=== PATIENT | male | born 1965 | race Caucasian/White ===

== ENCOUNTER → 2017-10-07 | Outpatient (CLI) | payer BC ==
[~2017-10-07] MED LIST: AMLO5TAB2 PO; ATOR20TA58 PO; IBUP-1060 PO; LISI1TAB5 PO
--- NOTE | 2017-10-07 16:25 | KCIC ---
LUMBAR SPINE MIN 4V Indication: Left back pain radiating down the left leg for 2 or 3 months. . Comparison: No comparison is available. FINDINGS: Mild right convexity scoliosis. Vertebral body height is maintained. No evidence of destructive bone lesion. No significant vertebral subluxation. There is mild marginal spurring at the lumbar spine particularly at L3-4 and L4-5. There is also mild lower thoracic degenerative spurring. No evidence of spondylolysis. IMPRESSION: Mild degenerative changes. Electronically signed by: Robert Simpson MD (10/07/2017 4:22 PM) [facility]
== END | disposition home or self-care (01) ==
LOC: KCIC 15:18
PROVIDERS: ATTEND Physician Assistant Medical
DX: M54.9 Dorsalgia, unspecified (principal)
CPT/HCPCS: 72110

== ENCOUNTER → 2017-10-09 | Outpatient (CLI) | payer BC ==
--- NOTE | 2017-10-09 15:57 | KCIC ---
MRI Lumbar Spine without contrast History: Acute left-sided low back pain, left sciatica Technique: Multiplanar, multi sequential noncontrast MR imaging was performed of the lumbar spine. Contrast: None Comparison: None Findings: Lumbar vertebral body stature is preserved. There is negligible posterior subluxation L4 relative L5. There is moderate to severe degenerative disc disease greater posteriorly at L4-5, mild degenerative disc disease greater posteriorly at L3-4. There is a small hemangioma of the L1 vertebral body. Conus terminates at T12. There is mild degenerative endplate change and endplate edema L4-5. L1-L2: Spinal canal and the neural foramina are adequate. There is mild facet hypertrophic change. L2-L3: There is anterior annular tear. There is prominence of posterior epidural fat and mild buckling of the ligamentum flavum. There is mild to moderate facet hypertrophic change. There is negligible disc osteophyte complex. There is very mild narrowing of the far left lateral recess. Neural foramina are adequate. L3-L4: There is shallow posterior bulge. There is mild buckling of the ligamentum flavum and [id number] facet degenerative change. There is very mild narrowing of the far lateral recesses bilaterally. There is mild narrowing of the left neural foramen, right neural foramen adequate. L4-L5: There is mild facet hypertrophic change greater on right. There is minimal buckling of the ligamentum flavum. There is shallow broad posterior bulge/protrusion. There is very mild narrowing of the far left lateral recess. There is mild neural foramina compromise bilaterally. L5-S1: Spinal canal and neural foramina are adequate. Impression: 1. There is no significant lumbar spinal stenosis, mild narrowing of the far lateral recesses as stated. 2. There is moderate to severe degenerative disc disease at L4-5, minimally at L3-4. 3. There is mild neural foramina compromise bilaterally at L4-5 and on the left at L3-4. Electronically signed by: Stephen Meredith MD (10/09/2017 3:53 PM) [facility]
== END | disposition home or self-care (01) ==
LOC: KCIC MRI 15:06
PROVIDERS: ATTEND Physician Assistant Medical
DX: M54.42 Lumbago with sciatica, left side (principal); M51.36 Other intervertebral disc degeneration, lumbar region
CPT/HCPCS: 72148

== ENCOUNTER → 2017-10-22 | Outpatient (CLI) | payer BC ==
[~2017-10-22] MED LIST changes: +IOHEXOL 180 MG/ML 10 ML VIAL. ONE; +methylPREDNISolone ACETATE 40 MG/ML VIAL. ONE; +methylPREDNISolone ACETATE 80 MG/ML VIAL. ONE
--- NOTE | 2017-10-23 04:27 | PAIN ---
DATE OF SERVICE: 10/22/2017 INITIAL CONSULTATION FOR PAIN CLINIC CHIEF COMPLAINT: Low back and left lower extremity pain. HISTORY OF PRESENT ILLNESS: The patient is a 51-year-old male who presents with history of pain for about 3 to 4 months, increasing gradually in the low back, left lower extremity, radiating to the posterior gluteus, posterolateral thigh, lateral anterior thigh, medial thigh, medial lower leg and into the foot on the medial aspect on the left side only. No pain on the right side. The patient reports it is constant, sharp, throbbing, shooting with numbness and tingling, changes during the day, worse with activity, standing, walking, changing positions, better with sitting or lying down, but does not awaken him from sleep. He lies on his left side about every 2-3 hours at night. The patient reports it has not affected his bowel or bladder control, but does affect his ability to walk significantly. He has been having weakness in his left leg and significant fatigability with walking even more than about 10 or 15 minutes. The patient reports also riding in the car, his leg feels numb and heavy on the left side. The patient reports his disability rating from 0-10, 10 being the worst is a 2 with family home responsibilities and self care, 4 with recreation, occupation, sexual behavior and life support activities. The patient did have an MRI scan of the lumbar spine showing moderate to severe degenerative disk disease at L4-L5 and minimally at L3-L4 with broad-based shallow posterior bulge protrusion at L4-L5 with mild narrowing of the far left lateral recess. Also L3-L4 showing mild narrowing, left neural foramen and right neural foramen is adequate. The patient has tried exercising, doing some stretching on his own, has had no formal physical therapy at this time and no formal other treatments. PAST MEDICAL HISTORY: Significant for hypertension, otherwise the patient has been in very good health. PREVIOUS SURGERY: Include hernia repair. CURRENT MEDICATIONS: Include ibuprofen, amlodipine, lisinopril and atorvastatin. ALLERGIES: THE PATIENT IS ALLERGIC TO PENICILLIN. FAMILY HISTORY: Significant for no major medical problems or conditions that he is aware of. SOCIAL HISTORY: The patient is and lives locally in [place], [place]. 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 Drinks 1 to 2 alcoholic drinks a week on average and does not smoke. REVIEW OF SYSTEMS: The patient's review of systems is positive for those items mentioned in the history of present illness. All systems reviewed and otherwise negative. It is complete, full and well documented on the patient's chart. PHYSICAL EXAMINATION: VITAL SIGNS: Today, his blood pressure 140/86, pulse 75, respirations 18, temperature 98.1 degrees Fahrenheit, height 6 feet and weight is 240 pounds. GENERAL: The patient is awake, alert, oriented, appropriate, very pleasant demeanor. HEENT: Head shows normocephalic and atraumatic. Extraocular movements are intact and symmetrical. Oral cavity: Mucous membranes are moist and pink. Dentition is intact. NECK: Shows anterior throat supple without palpable lymphadenopathy noted. Swallow reflex is symmetrical. CHEST: Normal to inspection. Breath sounds are clear to auscultation bilaterally. HEART: Shows S1 and S2 clear. No murmurs auscultated. ABDOMEN: Soft, nontender and nondistended. No palpable organomegaly. No rebound or guarding demonstrated. MUSCULOSKELETAL: Back shows spine grossly in the midline. Normal appearing thoracic kyphosis and lumbar lordotic curvature. No previous bruises, lesions, rashes or scars are noted. Lumbar paraspinous muscle shows symmetrical on inspection with palpation, some [id number] tenderness in the low back, more on the left than the right in the paraspinous muscles in the low lumbar distribution only diffusely without radiation. No tenderness over the sacrum, spinous processes or the sacroiliac regions. The patient has good rotational motion of the lumbar spine both laterally greater than 10 degrees, right and left as well as extension greater than 10 degrees, forward flexion 45 degrees without significant pain reported. The patient's lower extremities show deep tendon reflexes at 2+ in the patellar and 1+ tendo calcaneus tendons. Motor exam is strong with 5/5 dorsiflexion, extension, quadriceps and hamstring flexion and symmetrical. Peripheral pulses are 2+ posterior tibial and dorsalis pedis pulses. No peripheral edema is noted. No clubbing or cyanosis. Lower extremities are warm and dry to touch, equal in color and appearance. The patient's straight leg raise noted to be moderately positive on the left at about 35 to 40 degrees, decreased with knee flexion, right side is negative. Gaenslen's and Jeff's maneuvers are negative bilaterally as well. The patient is able to stand, stand on his toes without difficulty without loss of balance, walks with a normal appearing gait for a short distance in the office today, not using any assistive device such as canes or walkers. IMPRESSION: 1. This is a 51-year-old male with approximate 3-4 month history of increasing pain, low back, left lower extremity without any specific injury or action he is aware of. 2. MRI scan of the lumbar spine as noted. 3. Hypertension. PLAN: Options were discussed with the patient including conservative medical management, physical therapy, interventional technique and he would like to pursue with interventional techniques. We discussed a lumbar epidural steroid injection using description as well as anatomical models to describe the procedure. Risks were then discussed including, but not limited to bleeding, infection, possibility of epidural hematoma and subsequent neurological compromise, dural puncture, headaches, spinal cord and/or nerve damage, side effects of steroid medication and poor results regarding pain control. The patient understands and wished to proceed. The patient will return to the clinic in approximately 2 weeks for followup. He was counseled on return appointment, activity level and side effects to be aware of. DIAGNOSIS: Lumbar degenerative disk disease with lumbar radiculopathy. PROCEDURES: Lumbar epidural steroid injection, translaminar approach at the L4-L5 level using C-arm fluoroscopic guidance under sterile prep and drape using local anesthetic. MEDICATIONS INJECTED: A total of 120 mg of Depo-Medrol plus 10 mL of preservative -free normal saline and 2 mL of Isovue contrast. CONDITION AT DISCHARGE: Stable. The patient tolerated the procedure well and had no complications. ANA LUISA SAMPSON MD DR: WILVER/denton JOB#: [id number] / [id number]
== END ==
LOC: PNCL 12:39
PROVIDERS: ATTEND Anesthesiology
DX: M51.16 Intervertebral disc disorders with radiculopathy, lumbar region (principal); I10 Essential (primary) hypertension; Z88.0 Allergy status to penicillin; Z98.890 Other specified postprocedural states
CPT/HCPCS: 62323; J1030; J1040

== ENCOUNTER → 2017-11-05 | Outpatient (CLI) | payer BC ==
--- NOTE | 2017-11-06 00:05 | PAIN ---
DATE OF SERVICE: 11/05/2017 [employer] PROGRESS NOTE FOR PAIN CLINIC DIAGNOSES: Lumbar radiculopathy with lumbar degenerative disk disease. HISTORY OF PRESENT ILLNESS: The patient is a 51-year-old male who returns for followup status post lumbar epidural steroid injection x 1. The patient reports about 70% improvement in the low back and left lower extremity pain. The patient reports still has some pain in the region, is a throbbing pain in his low back radiating pain to posterior gluteus, posterolateral thigh, lateral anterior thigh to the level of the knee; is aching and dull, becoming more constant when noticeable and initially was doing very well, was having a significant increase in activity with greater ease and comfort, sleeping better. It is beginning to awaken him occasionally in the last few days overnight but appears still sleeps about 6 hours a night without disruption. The patient reports he usually reposition to get back to sleep as well when he is mainly lying on his left side. The patient reports the pain is a 6 on a scale 10 at its worst, 2 on average and 4 currently today. The patient reports aching and dull, becoming more noticeable, more constant. No new motor or sensory deficits, however, no new bowel or bladder incontinence or other complaints. PHYSICAL EXAMINATION: VITAL SIGNS: Today, the patient's blood pressure is 151/95, pulse 77, respirations are 18, temperature is 98.4 degrees Fahrenheit, height 6 feet and weight is 236 pounds. GENERAL: The patient is awake, alert, oriented, appropriate and very pleasant demeanor. HEENT: Head shows normocephalic and atraumatic. Extraocular movements are intact, symmetrical. Oral cavity: Mucous membranes moist and pink. Dentition is intact. NECK: Shows anterior throat supple without palpable lymphadenopathy noted. Swallow reflex symmetrical. Neck shows full rotational motion of the cervical spine without difficulty or tenderness. CHEST: Shows normal with inspection. Breath sounds clear to auscultation bilaterally. HEART: Shows S1 and S2 clear. ABDOMEN: Soft, nontender and nondistended. No palpable organomegaly. No rebound or guarding demonstrated. BACK: Shows spine grossly in the midline. Normal appearing thoracic kyphosis and lumbar lordotic curvature. Lumbar paraspinous muscle shows symmetrical on inspection with palpation shows only some very mild tenderness with palpation in the lower lumbar distribution bilaterally but without radiation. No tenderness over the sacrum and sacroiliac regions. The patient has good rotational motion of the lumbar spine, both laterally as well as extension and flexion without difficulty. The lower extremities show deep tendon reflexes at 2+ in the patellar and 1+ tendo calcaneus tendons. Motor exam is strong with 5/5 dorsiflexion, extension, quadriceps and hamstring flexion equal. Peripheral pulses are 2+, posterior tibial. No peripheral edema is noted bilaterally. Options were discussed with the patient. The patient's old chart was used as well as current medication regimen updated. Current review of systems updated today as well. We will proceed with a second lumbar epidural steroid injection with fluoroscopic guidance today. Risks were again discussed including, but not limited to bleeding, infection, possibility of epidural hematoma, subsequent neurologic compromise, dural puncture, headaches, spinal cord and/or nerve damage, side effects of steroid medication and poor results regarding pain control. The patient understands and wished to proceed. The patient to return to clinic in approximately 2 weeks for followup. He was counseled as to activity level as well as the side effects to be aware of. DIAGNOSIS: Lumbar radiculopathy with lumbar degenerative disease. PROCEDURE: Lumbar epidural steroid injection, translaminar approach at the L4-L5 level using C-arm fluoroscopic guidance under sterile prep and drape using local anesthetic. MEDICATION INJECTED: A total of 120 mg Depo-Medrol plus 10 mL of preservative-free normal saline and 2 mL of Isovue for contrast. CONDITION AT DISCHARGE: Stable. The patient tolerated procedure well, had no complications. ANA LUISA SAMPOSN MD DR: WILVER/denton JOB#: [id number] / [id number]
== END | disposition home or self-care (01) ==
LOC: PNCL 14:22
PROVIDERS: ATTEND Anesthesiology
DX: M51.16 Intervertebral disc disorders with radiculopathy, lumbar region (principal); Z88.0 Allergy status to penicillin
CPT/HCPCS: 62323; J1030; J1040

== ENCOUNTER 2018-10-16 17:58 | Inpatient (IN) | payer BC ==
[~2018-10-16] VITALS: Ht 182.9 cm; Wt 115.2 kg
[~2018-10-16 17:58] MED LIST changes: -AMLO5TAB2 PO; +AMLO5TAB7 PO; -IOHEXOL 180 MG/ML 10 ML VIAL. ONE; -methylPREDNISolone ACETATE 40 MG/ML VIAL. ONE; -methylPREDNISolone ACETATE 80 MG/ML VIAL. ONE
[2018-10-16] MEDS ORDERED: methylPREDNISolone SOD SUCC PF 125 MG/2 ML VIAL. ONE (18:00)
[2018-10-16] MEDS ORDERED: FAMOTIDINE 20 MG/2 ML VIAL ONE (18:00)
[2018-10-16 18:24] LABS: CALCIUM 8.7 mg/dL (8.5-10.1); CREATININE 1.3 mg/dL (0.7-1.3); GFR 58.4; POTASSIUM 3.6 mmol/L (3.5-5.1)
[2018-10-16 18:29] LABS: ALBUMIN 4.1 g/dL (3.4-5.0); ALBUMIN/GLOBULIN RATIO 1.3 (1.0-1.7); BASO # 0.1 x10^3/uL (0.0-0.2); BASO % 1 % (0-3); EOS # 0.1 x10^3/uL (0.0-0.7); EOS % 2 % (0-3); HEMATOCRIT 45.9 % (39.0-53.0); HEMOGLOBIN 16.2 g/dL (13.0-17.5); LYMPH % 27 % (24-48); MEAN CORPUSCULAR HEMOGLOBIN 31 pg (25-35); MEAN CORPUSCULAR HGB CONC 35 g/dL (31-37); MEAN CORPUSCULAR VOLUME 88 fL (79-100); MONO # 0.7 x10^3/uL (0.0-1.1); MONO % 9 % (0-9); NEUT # 4.7 x10^3uL (1.8-7.7); NEUT % 62 % (31-73); PLATELET COUNT 181 x10^3/uL (140-400); RED BLOOD COUNT 5.21 x10^6/uL (4.30-5.70); RED CELL DISTRIBUTION WIDTH 13.3 % (11.5-14.5); TOTAL BILIRUBIN 0.4 mg/dL (0.2-1.0); TOTAL PROTEIN 7.3 g/dL (6.4-8.2); WHITE BLOOD COUNT 7.6 x10^3/uL (4.0-11.0)
[2018-10-16] MEDS ORDERED: methylPREDNISolone SOD SUCC PF 125 MG/2 ML VIAL. IV ONE (18:30)
[2018-10-16] MEDS ORDERED: EPINEPHrine 1 MG/ML VIAL IM ONE (18:30)
[2018-10-16] MEDS ORDERED: FAMOTIDINE 20 MG/2 ML VIAL IVP ONE (18:30)
[2018-10-16] MEDS ORDERED: EPINEPHrine 1 MG/ML VIAL IM PRN (19:30)
[2018-10-16] MEDS ORDERED: ONDANSETRON PF 4 MG/2 ML VIAL. IV PRN (19:30)
--- NOTE | 2018-10-16 19:31 | PHYS DOC ---
Past Medical History Past Medical History: No Pertinent History Past Surgical History: No Surgical History Alcohol Use: Heavy Additional Information: WINE DAILY Drug Use: None Adult General Chief Complaint Chief Complaint: ALLERGIC REACTION HPI HPI Patient is a 52 year old male who presents with anaphylaxis. The patient was at home having dinner when he started to feel like his throat was swelling. By the time the patient came to the emergency department, approximately 30 minutes after symptoms began, the patient had significant swelling to throat as well as edema to bilateral eyelids. The patient does take lisinopril but has only a penicillin allergy from childhood. He states that he had a rash with that allergy. He denies any known food allergies. They were eating leftovers from yesterday's Thanksgiving dinner. The only difference in the meal was that this evening he did consume deviled eggs. His states that they did have paprika sprinkled on them. He denies chest pain or shortness of air. He denies fever or any recent illness. Review of Systems Review of Systems Constitutional: Denies fever or chills [] Eyes: Denies change in visual acuity, redness, or eye pain [] HENT: See history of present illness Respiratory: Denies cough or shortness of breath [] Cardiovascular: No additional information not addressed in HPI [] GI: Denies abdominal pain, nausea, vomiting, bloody stools or diarrhea [] : Denies dysuria or hematuria [] Musculoskeletal: Denies back pain or joint pain [] Integument: Denies rash or skin lesions [] Neurologic: Denies headache, focal weakness or sensory changes [] Endocrine: Denies polyuria or polydipsia [] All other systems were reviewed and found to be within normal limits, except as documented in this note. Current Medications Current Medications Current Medications Medications (Trade) Dose Ordered Sig/Favian Start Time Stop Time Status Last Admin Dose Admin Epinephrine HCl (Adrenalin) 0.5 mg 1X PRN PRN 10/16/18 19:30 10/17/18 13:17 DC Famotidine (Pepcid Vial) 20 mg 1X ONCE 10/16/18 18:30 10/16/18 18:31 DC 10/16/18 18:12 20 MG Methylprednisolone Sodium Succinate (SOLU-Medrol 125MG VIAL) 125 mg 1X ONCE 10/16/18 18:30 10/16/18 18:31 DC 10/16/18 18:12 125 MG Ondansetron HCl (Zofran) 4 mg PRN Q8HRS PRN 10/16/18 19:30 10/17/18 13:17 DC Sodium Chloride 1,000 ml @ 125 mls/hr Q8H 10/16/18 20:00 10/17/18 13:17 DC 10/16/18 20:47 125 MLS/HR Allergies Allergies Allergies Coded Allergies Type Severity Reaction Last Updated Verified Penicillins Allergy Intermediate Unknown 10/22/17 Yes Physical Exam Physical Exam Constitutional: Well developed, well nourished, no acute distress, non-toxic appearance. [] HENT: Normocephalic, atraumatic, bilateral external ears normal, oropharynx moist with edema noted to uvula and tongue, no oral exudates, nose normal. [] Eyes: PERRLA, EOMI, conjunctiva normal, no discharge, edema noted to bilateral eyelids. [] Neck: Normal range of motion, no tenderness, supple, no stridor. [] Cardiovascular:Heart rate regular rhythm, no murmur [] Lungs & Thorax: Bilateral breath sounds clear to auscultation [] Abdomen: Bowel sounds normal, soft, no tenderness, no masses, no pulsatile masses. [] Skin: Warm, dry, no erythema, no rash. [] Neurologic: Alert and oriented X 3, normal motor function, normal sensory function, no focal deficits noted. [] Psychologic: Affect normal, judgement normal, mood normal. [] Current Patient Data Vital Signs Vital Signs Date Time Temp Pulse Resp B/P (MAP) Pulse Ox O2 Delivery O2 Flow Rate FiO2 10/16/18 18:14 98.6 97 16 147/112 (124) 98 Room Air 98.6 Lab Values Laboratory Tests Test 10/16/18 18:00 White Blood Count 7.6 x10^3/uL (4.0-11.0) Red Blood Count 5.21 x10^6/uL (4.30-5.70) Hemoglobin 16.2 g/dL (13.0-17.5) Hematocrit 45.9 % (39.0-53.0) Mean Corpuscular Volume 88 fL (79-100) Mean Corpuscular Hemoglobin 31 pg (25-35) Mean Corpuscular Hemoglobin Concent 35 g/dL (31-37) Red Cell Distribution Width 13.3 % (11.5-14.5) Platelet Count 181 x10^3/uL (140-400) Neutrophils (%) (Auto) 62 % (31-73) Lymphocytes (%) (Auto) 27 % (24-48) Monocytes (%) (Auto) 9 % (0-9) Eosinophils (%) (Auto) 2 % (0-3) Basophils (%) (Auto) 1 % (0-3) Neutrophils # (Auto) 4.7 x10^3uL (1.8-7.7) Lymphocytes # (Auto) 2.0 x10^3/uL (1.0-4.8) Monocytes # (Auto) 0.7 x10^3/uL (0.0-1.1) Eosinophils # (Auto) 0.1 x10^3/uL (0.0-0.7) Basophils # (Auto) 0.1 x10^3/uL (0.0-0.2) Sodium Level 140 mmol/L (136-145) Potassium Level 3.6 mmol/L (3.5-5.1) Chloride Level 101 mmol/L (98-107) Carbon Dioxide Level 30 mmol/L (21-32) Anion Gap 9 (6-14) Blood Urea Nitrogen 16 mg/dL (8-26) Creatinine 1.3 mg/dL (0.7-1.3) Estimated GFR (Cockcroft-Gault) 58.4 BUN/Creatinine Ratio 12 (6-20) Glucose Level 155 mg/dL (70-99) H Calcium Level 8.7 mg/dL (8.5-10.1) Total Bilirubin 0.4 mg/dL (0.2-1.0) Aspartate Amino Transferase (AST) 22 U/L (15-37) Alanine Aminotransferase (ALT) 32 U/L (16-63) Alkaline Phosphatase 91 U/L (46-116) Total Protein 7.3 g/dL (6.4-8.2) Albumin 4.1 g/dL (3.4-5.0) Albumin/Globulin Ratio 1.3 (1.0-1.7) Laboratory Tests 10/16/18 18:00 Laboratory Tests 10/16/18 18:00 EKG EKG [] Radiology/Procedures Radiology/Procedures [] Course & Med Decision Making Course & Med Decision Making Pertinent Labs and Imaging studies reviewed. (See chart for details) []The patient took a dose of Benadryl at home. He received Solu-Medrol 125 mg, Pepcid and epinephrine 0.5 mg IM in the emergency department with resolution of his symptoms. He patient will be admitted for observation. Dr. Espinoza has accepted care of this patient. Dragon Disclaimer Dragon Disclaimer This electronic medical record was generated, in whole or in part, using a voice recognition dictation system. Departure Departure Impression: Primary Impression: Anaphylaxis Disposition: ADMITTED INPATIENT Condition: GOOD Attending Signature Attending Signature Constitutional: Well developed, well nourished, anxious HENT: Moderate uvular edema, moderate, tongue swelling Eyes: Conjunctiva normal, bilateral periocular edema noted Neck: Normal range of motion, no swelling, no stridor Cardiovascular:Heart rate regular rhythm, no murmur [] Lungs & Thorax: Bilateral breath sounds clear to auscultation, no respiratory distress Skin: Warm, dry, no erythema, facial and oral angioedema Neurologic: Alert and oriented X 3, no focal deficits noted. [] Psychologic: Anxious I have personally interviewed and examined the patient. All charts, labs, and imaging studies were reviewed. I agree with the PA/CRANE ENGINEER's findings, exam, and plan. LJ RAE APRN Oct 16, 2018 19:31 MICHELESHAQUILLE DO Oct 18, 2018 19:03
[2018-10-16] MEDS: IV NORMAL SALINE 1000ML BAG 1,000 ML IV SCH (20:47)
[2018-10-16 20:54] VITALS: BP 120/76
[2018-10-16 23:00] VITALS: BP 162/89
[2018-10-17 03:00] VITALS: BP 169/93
[2018-10-17 03:47] LABS: BASO % 0 % (0-3); EOS % 0 % (0-3); HEMATOCRIT 43.2 % (39.0-53.0); HEMOGLOBIN 15.6 g/dL (13.0-17.5); LYMPH # 0.6 x10^3/uL (1.0-4.8); LYMPH % 7 % (24-48); MEAN CORPUSCULAR HEMOGLOBIN 32 pg (25-35); MEAN CORPUSCULAR HGB CONC 36 g/dL (31-37); MEAN CORPUSCULAR VOLUME 87 fL (79-100); MONO # 0.1 x10^3/uL (0.0-1.1); MONO % 1 % (0-9); NEUT # 7.9 x10^3uL (1.8-7.7); NEUT % 92 % (31-73); PLATELET COUNT 158 x10^3/uL (140-400); RED BLOOD COUNT 4.95 x10^6/uL (4.30-5.70); RED CELL DISTRIBUTION WIDTH 13.1 % (11.5-14.5); WHITE BLOOD COUNT 8.6 x10^3/uL (4.0-11.0)
[2018-10-17] MEDS: IV NORMAL SALINE 1000ML BAG 1,000 ML IV SCH ×2 (04:00→12:00)
[2018-10-17 04:23] LABS: CREATININE 1.1 mg/dL (0.7-1.3); GFR 70.9; POTASSIUM 4.1 mmol/L (3.5-5.1)
[2018-10-17 07:12] VITALS: BP 159/111
[2018-10-17 09:49] LABS: % BANDS 4 % (0-9); % LYMPHS 4 % (24-48); % SEGS 92 % (35-66); PLT ESTIMATE ADEQUATE (ADEQUATE)
[2018-10-17 10:49] VITALS: BP 159/91
--- NOTE | 2018-10-17 12:27 | PDOC ---
Provider Note Provider Note [id number] ELDA WAY MD Oct 17, 2018 12:27
[2018-10-17] MEDS ORDERED: LOSARTAN POTASSIUM 50 MG TABLET. PO SCH (12:30)
[2018-10-17] MEDS ORDERED: amLODIPine BESYLATE 5 MG TABLET PO SCH (12:30)
[2018-10-17] MEDS ORDERED: ATORVASTATIN CALCIUM 20 MG TABLET PO SCH (12:30)
[2018-10-17] MEDS ORDERED: hydroCHLOROthiazide 25 MG TABLET PO SCH (12:30)
--- NOTE | 2018-10-17 12:30 | DISCH ---
DISCHARGE INSTRUCTIONS Condition on Discharge Condition on Discharge: Stable Activity After Discharge Activity Instructions for Disc: No restrictions Weight Bearing Status after Di: No restrictions Diet after Discharge Diet after Discharge: Cardiac, Low Sodium 4 gm Follow-Up Follow up with: dr domingo 5 d Follow Up With: Follow up with primary doctor in one week Treatment/Equipment after DC Adaptive Equipment Issued: None ELDA WAY MD Oct 17, 2018 12:30
[2018-10-17 12:44] VITALS: BP 159/91
--- NOTE | 2018-10-17 12:48 | SSS ---
ADMIT DATE: 10/17/2018 HOSPITAL SUMMARY: A 52-year-old white male who came in with what sounds like angioedema with swelling of his tongue, lips and eyelids. He has been on lisinopril HCT for more than a year and has never occurred before and he did not eat or drink any new foods. He was given Solu-Medrol, Benadryl and epinephrine in the ER and improved and is feeling fine and comfortable to be discharged as an outpatient at this point. All of his labs were normal and his physical exam was normal at this time. FINAL DIAGNOSIS: Angioedema, likely secondary to lisinopril. OPERATIONS, PROCEDURES, COMPLICATIONS, AND CONSULTATIONS: None. DISPOSITION: Discontinue lisinopril HCT and start losartan HCT 100/[address]. Continue amlodipine 5 mg daily and atorvastatin daily and we will see in the office in 6 days and follow up. Note that his CBC and BMP were all within normal limits with GFR of 71, creatinine 1.1, but a blood sugar mildly elevated at 175. We will need to do an A1c when he is in the office as well to rule out diabetes or prediabetes. ELDA WAY MD DR: DANA/denton JOB#: [id number] / [id number]
== END 2018-10-17 11:45 | disposition home or self-care (01) | DRG 916 ==
LOC: ER 17:58 → 2 NORTH 20:19
PROVIDERS: ADMIT Family Medicine; ATTEND Family Medicine
DX: T78.3XXA Angioneurotic edema, initial encounter (principal); T88.6XXA Anaphylactic reaction due to adverse effect of correct drug or medicament properly administered, initial encounter; T46.4X5A Adverse effect of angiotensin-converting-enzyme inhibitors, initial encounter; Y92.89 Other specified places as the place of occurrence of the external cause; Z88.0 Allergy status to penicillin; Z79.899 Other long term (current) drug therapy
CPT/HCPCS: 36415; 80048; 80053; 85007; 85025; 96372; 96374; 96375; J0171; J2930; J3490; J7030; 99285-25